=== PATIENT | male | born 1960 | race Caucasian/White ===

== ENCOUNTER → 2016-03-25 | Outpatient (CLI) | payer BC ==
--- NOTE | 2016-03-25 15:58 | US ---
EXAMINATION TYPE: US scrotum with doppler DATE OF EXAM: 03/25/2016 1:57 PM COMPARISON: NONE CLINICAL HISTORY: 55-year-old male N50.89 Disorder of male genital. Left with testicle swelling, no p ain, no injury TECHNIQUE: Multiple sonographic images of the scrotum were obtained. Color Doppler and spectral wavef orm analysis of the testicular arteries and veins. FINDINGS: TESTICLES: Right Testicle: 4.2 x 2.4 x 3.5 cm homogeneous echotexture without hyperemia. Satisfactory arterial and venous flow. Left Testicle: 4.3 x 4.1 x 3.7 cm with marked heterogeneous echotexture and a more focal area of hyp oechogenicity measuring 2.7 x 2.4 x 1.3 cm. There is satisfactory arterial and venous flow seen. EPIDIDYMIS HEAD: Right Epididymis: 1.2 x 0.9x 0.6 cm Left Epididymis: 1.6 x 1.3 x1.3 cm with a 1.2 cm epididymal head cyst. There is a moderate to large left and a small sized right hydrocele. No varicocele seen. IMPRESSION: 1. Moderate to large left-sided hydrocele with a markedly heterogeneous left testicle. Some type of i nfiltrative process such as sarcoid or lymphoma could be considered in the differential. An underlyin g mass is difficult to exclude given a more focal hypoechoic area measuring 2.7 cm within the left te sticle. 2. Small right-sided hydrocele. 3. No sonographic evidence for testicular torsion on either side.
== END | disposition home or self-care (01) ==
LOC: RADUSWWP 12:59
PROVIDERS: ATTEND Internal Medicine
DX: N43.3 Hydrocele, unspecified (principal)
CPT/HCPCS: 76870; 93975

== ENCOUNTER → 2016-03-30 | Outpatient (CLI) | payer BC ==
[2016-03-30 07:57] LABS: CH 31.3; HCT 43.4 % (39.0-53.0); HDW 2.78; HGB 14.3 gm/dL (13.0-17.5); MCH 30.3 pg (25.0-35.0); MCHC 32.8 g/dL (31.0-37.0); MCV 92.4 fL (80.0-100.0); Mean Platelet Volume 6.9; RDW 13.4 % (11.5-15.5); WBC 6.1 k/uL (3.8-10.6)
[2016-03-30 09:08] LABS: Hemoglobin A1C 11.5 % (4.2-6.1)
[2016-03-30 11:43] LABS: ALT 47 U/L (21-72); AST 27 U/L (17-59); Alkaline Phosphatase 62 U/L (38-126); Anion Gap 12 mmol/L; Blood Urea Nitrogen 12 mg/dL (9-20); Calcium 9.5 mg/dL (8.4-10.2); Carbon Dioxide 27 mmol/L (22-30); Chloride 98 mmol/L (98-107); Cholesterol 142 mg/dL (<200); Glucose 384 mg/dL (74-99); HDL Cholesterol 37 mg/dL (40-60); Non-African American GFR(MDRD) >60 (>60 ml/min/1.73 sqM); Potassium 5.1 mmol/L (3.5-5.1); Sodium 137 mmol/L (137-145); Total Bilirubin 1.5 mg/dL (0.2-1.3); Total Protein 7.3 g/dL (6.3-8.2); Triglycerides 212 mg/dL (<150)
== END | disposition home or self-care (01) ==
LOC: LABWHC1 07:04
PROVIDERS: ATTEND Internal Medicine
DX: E11.42 Type 2 diabetes mellitus with diabetic polyneuropathy (principal); E11.319 Type 2 diabetes mellitus with unspecified diabetic retinopathy without macular edema; Z12.5 Encounter for screening for malignant neoplasm of prostate
CPT/HCPCS: 80061; 80053; 83036; 85027; 36415; G0103

== ENCOUNTER → 2016-03-31 | Outpatient (CLI) | payer BC ==
[2016-03-31 07:52] LABS: Appearance,Urine Clear (Clear); Bilirubin,Urine Negative (Negative); Glucose,Urine (UA) 4+ (Negative); Ketones,Urine Trace (Negative); Leukocyte Esterase,Urine Negative (Negative); Nitrite,Urine Negative (Negative); PH, Urine 5.5 (5.0-8.0); Protein,Urine Negative (Negative); Specific Gravity,Urine 1.027 (1.001-1.035); UA Billing (MACRO vs. MICRO) CHEM; Urobilinogen,Urine <2.0 mg/dL (<2.0)
== END | disposition home or self-care (01) ==
LOC: LABWHC1 07:24
PROVIDERS: ATTEND Internal Medicine
DX: E11.42 Type 2 diabetes mellitus with diabetic polyneuropathy (principal); E11.319 Type 2 diabetes mellitus with unspecified diabetic retinopathy without macular edema; Z12.5 Encounter for screening for malignant neoplasm of prostate
CPT/HCPCS: 81003; 82043

== ENCOUNTER 2016-05-05 07:16 | Day surgery (SDC) | payer BC ==
[2016-04-30 12:26] VITALS: BMI 35.7
--- NOTE | 2016-05-03 08:28 | HP ---
DATE OF ADMISSION: CHIEF COMPLAINT: Testicular cancer. HISTORY OF PRESENT ILLNESS: Patient is a 55-year-old male who was recently diagnosed with testicular cancer in January this last year. CAT scan performed in early April showed a 2.3 cm. Periaortic lymph node. He is being started on chemotherapy at this time. PAST MEDICAL HISTORY: Diabetes, peripheral neuropathy. PAST SURGICAL HISTORY: Marielle, orchiectomy, retinal detachment. MEDICATIONS: 1. Humalog. 2. Levemir. 3. Losartan. 4. Metformin. 5. Simvastatin. ALLERGIES: PENICILLIN. PHYSICAL EXAM: Deferred until the time of the procedure. IMPRESSION: A 55-year-old male being scheduled for Port-A-Cath insertion on 05/05. The risks of bleeding, infection, catheter malfunction, DVT, pneumothorax and anesthesia-related complications will be discussed with the patient preoperatively.
[~2016-05-05 07:16] MED LIST: CLINDAMYCIN 900 MG in DEXTROSE 5% IN WATER 50 ML IVPB ONE; HEPARIN SODIUM,PORCINE 5,000 UNIT/ML 1 ML VIAL SQ ONE; HYDROmorphone 1 MG/ML 1 ML SYRINGE IVP PRN; LACTATED RINGERS 1,000 ML IV SCH; LIDOCAINE 1% 20 ML VIAL (10MG/ML) FOR IV START INTRADERMA PRN; ONDANSETRON 4 MG/2 ML VIAL IVP ONE
[2016-05-05 07:49] VITALS: RESP 16; TEMP 98.3
[2016-05-05 08:16] LABS: Glucose,Whole Blood 286 mg/dL (75-99)
[2016-05-05] MEDS ORDERED: INSULIN LISPRO (humaLOG) 300 UNIT/3 ML VIAL SQ ONE ×2 (08:26→10:38)
--- NOTE | 2016-05-05 08:35 | P.HPADDEND ---
H&P Addendum H&P Addendum Date: 05/05/16 Physical exam: General: Well-developed, well-nourished HEENT: Normocephalic, sclerae nonicteric Abdomen: Nontender, nondistended, left groin incision with scant drainage Extremities: No edema Neuro: Alert and oriented
[2016-05-05] MEDS ORDERED: MIDAZOLAM 2 MG/2 ML VIAL ONE (08:56)
[2016-05-05] MEDS ORDERED: KETAMINE 10 MG/ML 20 ML VIAL ONE (08:56)
[2016-05-05] MEDS ORDERED: PROPOFOL 10 MG/ML 20 ML VIAL IV ONE (08:56)
[2016-05-05] MEDS ORDERED: fentaNYL (PF) 50 MCG/ML 2 ML AMP ONE (08:56)
[2016-05-05] MEDS ORDERED: LIDOCAINE 1% (PF) 10MG/ML VIAL SQ ONE ×2 (09:18)
--- NOTE | 2016-05-05 09:53 | FL ---
EXAMINATION TYPE: FL guided central line placemt HISTORY: Fluoroscopy time Impression: 1. Fluoroscopy support provided to the referring physician. Approximately 8 seconds provided.
[2016-05-05] MEDS ORDERED: NALOXONE 0.4 MG/ML 1 ML VIAL IV PRN (09:54)
--- NOTE | 2016-05-05 10:00 | P.PCN ---
Date of Procedure: 05/05/16 Procedure(s) Performed: PREOPERATIVE DIAGNOSIS: Testicular cancer POSTOPERATIVE DIAGNOSIS: Same PROCEDURE: Port-A-Cath placement SURGEON: Kami EBL: Minimal ANESTHESIA: Sedation COMPLICATIONS: None OPERATIVE PROCEDURE: Patient was brought and placed on the operative table in the supine position. The patient was sedated per anesthesia that time. The chest and neck were prepped and draped in usual sterile fashion. The ultrasound probe was used to identify the location of the right internal jugular vein. The skin was localized with lidocaine. The Seldinger needle was advanced into the IJ under ultrasound guidance. The wire was advanced through the needle under fluoroscopic guidance into the superior vena cava. A port pocket was created in the right infraclavicular location. The catheter was tunneled from the wire entrance site to the port pocket. The port was then connected to the catheter. The dilator introducer was threaded over the guidewire. The guidewire and dilator were then removed. The catheter was advanced through the introducer and introducer was then removed. The tip was seen to be in the right atrial junction. Port was flushed with both saline and a Hep-Lock solution. There was good flow both in and out of the port. The port was sutured in underlying tissues using 3-0 silk sutures. The subcutaneous tissues were reapproximated using 3-0 Vicryl sutures and the skin at both locations using 4-0 Monocryl sutures. Steri-Strips and sterile dressings then applied. DISPOSITION: Stable to recovery room
[2016-05-05] MEDS ORDERED: diphenhydrAMINE 50 MG/ML 1 ML VIAL IVP ONE ×2 (10:15)
[2016-05-05 10:24] VITALS: BP 118/59; PULSE 82
--- NOTE | 2016-05-05 10:25 | XR ---
EXAMINATION TYPE: XR chest 1V portable DATE OF EXAM: 05/05/2016 10:20 AM COMPARISON: 02/05/2013 HISTORY: Port-A-Cath insertion TECHNIQUE: Single frontal view of the chest is obtained. FINDINGS: There is no focal air space opacity, pleural effusion, or pneumothorax seen. The cardiac silhouette size is within normal limits. The osseous structures are intact. Heart size is prominent pleural-based thickening. Mediport catheter seen with the tip overlying the SVC. IMPRESSION: 1. Mediport appears in good position with no sizable pneumothorax..
[2016-05-05 10:35] LABS: Glucose,Whole Blood 299 mg/dL (75-99)
== END 2016-05-05 11:09 | disposition home or self-care (01) ==
LOC: OR 07:16
PROVIDERS: ATTEND Surgery
DX: Z45.2 Encounter for adjustment and management of vascular access device (principal); C62.12 Malignant neoplasm of descended left testis; I10 Essential (primary) hypertension; E78.5 Hyperlipidemia, unspecified; E11.9 Type 2 diabetes mellitus without complications; G62.9 Polyneuropathy, unspecified; Z88.0 Allergy status to penicillin; Z79.84 Long term (current) use of oral hypoglycemic drugs; Z79.4 Long term (current) use of insulin; Z79.899 Other long term (current) drug therapy
CPT/HCPCS: 36561; 71010; 77001; C1788; J2250; J1200; J1644; J2405; J3010; J1642; J2001; J2704

== ENCOUNTER 2016-07-23 11:00 | Inpatient (IN) | payer BC ==
[2016-07-23] MEDS ORDERED: SODIUM CHLORIDE 0.9% 2,000 ML IV ONE ×2 (11:19→18:21)
[2016-07-23] MEDS ORDERED: ONDANSETRON 4 MG/2 ML VIAL IVP STA (11:19)
[2016-07-23] MEDS ORDERED: LEVOFLOXACIN 750MG-D5W PMX 750 MG in DEXTROSE/WATER 1 150ML.BAG IVPB STA (11:20)
[2016-07-23] MEDS ORDERED: ACETAMINOPHEN IV (For NPO) 1,000 MG in EMPTY BAG 1 BAG IVPB STA (11:21)
[2016-07-23] MEDS ORDERED: RX INFO: IV CONTRAST WAS GIVEN 1 EACH MISC MISCELLANE PRN (11:24)
--- NOTE | 2016-07-23 11:24 | ED ---
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 Patient states he's been taking chemo and he had his last chemo treatment on Tuesday. Patient states yesterday started having some belly pain and some nausea. Patient states today the belly pain is worse any spiking a fever. Patient states also had low blood pressure home in the 80s systolic. Patient also notes that his heart rate is been fast and is also a little bit lightheaded. Patient denies any chest pain or shortness of breath per patient denies any headache patient denies numbness weakness. Patient denies any vomiting - Related Data Home Medications Medication Instructions Recorded Confirmed Insulin Detemir [Levemir Flextouch] 67 units SQ HS 04/30/16 07/23/16 Insulin Lispro Protamin/Lispro See Protocol SQ AC-BID 04/30/16 07/23/16 [humaLOG Mix 50-50 Kwikpen] Simvastatin [Zocor] 40 mg PO Q48H 04/30/16 07/23/16 metFORMIN HCL [Glucophage] 1,000 mg PO AC-BID 04/30/16 07/23/16 Calcium Carb-Vit D 500Mg-200Un 2 tab PO BID 07/16/16 07/23/16 [Oscal 500+D] Hydrocortisone [Cortef] 20 mg PO DAILY 07/23/16 07/23/16 Losartan Potassium [Cozaar] 100 mg PO DIRECTED 07/23/16 07/23/16 Prochlorperazine [Compazine] 10 mg PO Q6H PRN 07/23/16 07/23/16 Allergies Allergy/AdvReac Type Severity Reaction Status Date / Time Penicillins Allergy Unknown Rash/Hives Verified 07/23/16 11:21 Review of Systems ROS Statement: Those systems with pertinent positive or pertinent negative responses have been documented in the HPI. ROS Other: All systems not noted in ROS Statement are negative. Past Medical History Past Medical History: Cancer, Diabetes Mellitus Additional Past Medical History / Comment(s): NEUROPATHY (FEET), DIABETIC SINCE AGE 39., HX OF SQUAMOUS CELL SKIN CANCER., TESTICULAR CANCER (DX FEBRUARY 2016), LEFT TESTICLE REMOVED 3 WEEKS AGO- STATES STILL SOME DRAINAGE FROM SURGICAL SITE. History of Any Multi-Drug Resistant Organisms: None Reported Past Surgical History: Cholecystectomy Additional Past Surgical History / Comment(s): DARRIAN DETACHED RETINA SURGERY., COLONOSCOPY, LEFT TESTICLE REMOVED (3 WEEKS AGO) Past Anesthesia/Blood Transfusion Reactions: No Reported Reaction Past Psychological History: No Psychological Hx Reported Smoking Status: Never smoker Past Alcohol Use History: None Reported Past Drug Use History: Unable to Obtain - Past Family History Sister(s) Family Medical History: Cancer General Exam - General Exam Comments Initial Comments: GENERAL: Patient is well-developed and well-nourished. Patient is nontoxic and well- hydrated and is in moderatedistress. ENT: Neck is soft and supple. No significant lymphadenopathy is noted. Oropharynx is clear. Moist mucous membranes. Neck has full range of motion without eliciting any pain. EYES: The sclera were anicteric and conjunctiva were pink and moist. Extraocular movements were intact and pupils were equal round and reactive to light. Eyelids were unremarkable. PULMONARY: Unlabored respirations. Good breath sounds bilaterally. No audible rales rhonchi or wheezing was noted. CARDIOVASCULAR: There is a regular rate and rhythm without any murmurs gallops or rubs. ABDOMEN: patient's abdomen is diffusely tender and has rebound. SKIN: Skin is clear with no lesions or rashes and otherwise unremarkable. NEUROLOGIC: Patient is alert and oriented x3. Cranial nerves II through XII are grossly intact. Motor and sensory are also intact. Normal speech, volume and content. Symmetrical smile. MUSCULOSKELETAL: Normal extremities with adequate strength and full range of motion. LYMPHATICS: No significant lymphadenopathy is noted PSYCHIATRIC: Normal psychiatric evaluation. Normal interpersonal interactions appears functionally intact in deals appropriately with others. No signs of depression. No signs of anxiety. Limitations: no limitations Course Vital Signs 07/23/16 07/23/16 07/23/16 11:02 13:00 13:48 Temperature 104.3 F H 100.4 F H 99.0 F Pulse Rate 154 H 148 H 144 H Pulse Rate [ 140 H Apical] Respiratory 18 30 H 18 Rate Blood Pressure 146/70 139/74 117/58 O2 Sat by Pulse 92 L 96 90 L Oximetry Procedures - Intubation Time Out Performed: Yes Sedative: Versed Paralytic: Succinylcholine Laryngoscope: Chambers Size: 3 ET Tube Uncuffed: No Tube Secured Location: teeth Tube Placement Confirmation: visualized tube passing through cords, equal breath sounds bilaterally, no breath sounds over epigastrium, confirmation by capnometry Patient Tolerated Procedure: well Intubation Complications: none Medical Decision Making - Medical Decision Making EKG shows sinus tachycardia at 152 bpm ID interval is 112 QRS is 66 QT interval is 274 QTC is 435 per patient's EKG shows no ST segment elevation or depression or T wave abnormalities are noted. computed tomography scan showed extensive mural thickening involving the terminal ileum and cecum with surrounding inflammatory changes it could be infectious versus inflammatory versus ischemic. Spoke with Dr. French Braswell wanted Dr. Triana cell and more on consult as well as Dr. Paige I also started the patient on Fortaz at this point. I spoke with Dr. Boyce and informed her of the patient's CAT scan as well as the physical exam. I made her aware that I thought it would be prudent to see the patient soon as possible. - Lab Data Result diagrams: 07/23/16 11:50 07/23/16 11:50 Lab Results 07/23/16 07/23/16 07/23/16 Range/Units 11:50 11:50 11:50 WBC 0.2 L* (3.8-10.6) k/uL RBC 3.01 L (4.30-5.90) m/uL Hgb 8.7 L (13.0-17.5) gm/dL Hct 25.7 L (39.0-53.0) % MCV 85.6 (80.0-100.0) fL MCH 29.1 (25.0-35.0) pg MCHC 33.9 (31.0-37.0) g/dL RDW 14.6 (11.5-15.5) % Plt Count 10 L* (150-450) k/uL Differential Comment Poikilocytosis (manual Present Anisocytosis (manual) Present PT (9.0-12.0) sec INR (<1.1) APTT (22.0-30.0) sec D-Dimer (<0.60) mg/L FEU Sodium 137 (137-145) mmol/L Potassium 3.5 (3.5-5.1) mmol/L Chloride 94 L (98-107) mmol/L Carbon Dioxide 26 (22-30) mmol/L Anion Gap 17 mmol/L BUN 64 H (9-20) mg/dL Creatinine 2.30 H (0.66-1.25) mg/dL Est GFR (MDRD) Af Amer 36 (>60 ml/min/1.73 sqM) Est GFR (MDRD) Non-Af 29 (>60 ml/min/1.73 sqM) Glucose 446 H (74-99) mg/dL Plasma Lactic Acid Mark (0.7-2.0) mmol/L Calcium 6.3 L* (8.4-10.2) mg/dL Total Bilirubin 1.8 H (0.2-1.3) mg/dL AST 33 (17-59) U/L ALT 49 (21-72) U/L Alkaline Phosphatase 53 (38-126) U/L Total Creatine Kinase 36 L (55-170) U/L CK-MB (CK-2) <0.2 (0.0-2.4) ng/mL CK-MB (CK-2) Rel Index Troponin I 0.013 (0.000-0.034) ng/mL Total Protein 5.9 L (6.3-8.2) g/dL Albumin 3.4 L (3.5-5.0) g/dL Urine Color Urine Appearance (Clear) Urine pH (5.0-8.0) Ur Specific [place] (1.001-1.035) Urine Protein (Negative) Urine Glucose (UA) (Negative) Urine Ketones (Negative) Urine Blood (Negative) Urine Nitrite (Negative) Urine Bilirubin (Negative) Urine Urobilinogen (<2.0) mg/dL Ur Leukocyte Esterase (Negative) Urine RBC (0-5) /hpf Urine WBC (0-5) /hpf Influenza Type A RNA (Not Detectd) Influenza Type B (PCR) (Not Detectd) 07/23/16 07/23/16 07/23/16 Range/Units 11:50 11:50 11:50 WBC (3.8-10.6) k/uL RBC (4.30-5.90) m/uL Hgb (13.0-17.5) gm/dL Hct (39.0-53.0) % MCV (80.0-100.0) fL MCH (25.0-35.0) pg MCHC (31.0-37.0) g/dL RDW (11.5-15.5) % Plt Count (150-450) k/uL Differential Comment Poikilocytosis (manual Anisocytosis (manual) PT 13.3 H (9.0-12.0) sec INR 1.4 (<1.1) APTT 21.0 L (22.0-30.0) sec D-Dimer 4.48 H (<0.60) mg/L FEU Sodium (137-145) mmol/L Potassium (3.5-5.1) mmol/L Chloride (98-107) mmol/L Carbon Dioxide (22-30) mmol/L Anion Gap mmol/L BUN (9-20) mg/dL Creatinine (0.66-1.25) mg/dL Est GFR (MDRD) Af Amer (>60 ml/min/1.73 sqM) Est GFR (MDRD) Non-Af (>60 ml/min/1.73 sqM) Glucose (74-99) mg/dL Plasma Lactic Acid Mark 5.5 H* (0.7-2.0) mmol/L Calcium (8.4-10.2) mg/dL Total Bilirubin (0.2-1.3) mg/dL AST (17-59) U/L ALT (21-72) U/L Alkaline Phosphatase (38-126) U/L Total Creatine Kinase (55-170) U/L CK-MB (CK-2) (0.0-2.4) ng/mL CK-MB (CK-2) Rel Index Troponin I (0.000-0.034) ng/mL Total Protein (6.3-8.2) g/dL Albumin (3.5-5.0) g/dL Urine Color Urine Appearance (Clear) Urine pH (5.0-8.0) Ur Specific [place] (1.001-1.035) Urine Protein (Negative) Urine Glucose (UA) (Negative) Urine Ketones (Negative) Urine Blood (Negative) Urine Nitrite (Negative) Urine Bilirubin (Negative) Urine Urobilinogen (<2.0) mg/dL Ur Leukocyte Esterase (Negative) Urine RBC (0-5) /hpf Urine WBC (0-5) /hpf Influenza Type A RNA (Not Detectd) Influenza Type B (PCR) (Not Detectd) 07/23/16 07/23/16 Range/Units 13:23 13:55 WBC (3.8-10.6) k/uL RBC (4.30-5.90) m/uL Hgb (13.0-17.5) gm/dL Hct (39.0-53.0) % MCV (80.0-100.0) fL MCH (25.0-35.0) pg MCHC (31.0-37.0) g/dL RDW (11.5-15.5) % Plt Count (150-450) k/uL Differential Comment Poikilocytosis (manual Anisocytosis (manual) PT (9.0-12.0) sec INR (<1.1) APTT (22.0-30.0) sec D-Dimer (<0.60) mg/L FEU Sodium (137-145) mmol/L Potassium (3.5-5.1) mmol/L Chloride (98-107) mmol/L Carbon Dioxide (22-30) mmol/L Anion Gap mmol/L BUN (9-20) mg/dL Creatinine (0.66-1.25) mg/dL Est GFR (MDRD) Af Amer (>60 ml/min/1.73 sqM) Est GFR (MDRD) Non-Af (>60 ml/min/1.73 sqM) Glucose (74-99) mg/dL Plasma Lactic Acid Mark (0.7-2.0) mmol/L Calcium (8.4-10.2) mg/dL Total Bilirubin (0.2-1.3) mg/dL AST (17-59) U/L ALT (21-72) U/L Alkaline Phosphatase (38-126) U/L Total Creatine Kinase (55-170) U/L CK-MB (CK-2) (0.0-2.4) ng/mL CK-MB (CK-2) Rel Index Troponin I (0.000-0.034) ng/mL Total Protein (6.3-8.2) g/dL Albumin (3.5-5.0) g/dL Urine Color Yellow Urine Appearance Clear (Clear) Urine pH 5.0 (5.0-8.0) Ur Specific [place] 1.007 (1.001-1.035) Urine Protein 1+ H (Negative) Urine Glucose (UA) 3+ H (Negative) Urine Ketones Negative (Negative) Urine Blood Negative (Negative) Urine Nitrite Negative (Negative) Urine Bilirubin Negative (Negative) Urine Urobilinogen <2.0 (<2.0) mg/dL Ur Leukocyte Esterase Negative (Negative) Urine RBC 1 (0-5) /hpf Urine WBC 1 (0-5) /hpf Influenza Type A RNA Not Detected (Not Detectd) Influenza Type B (PCR) Not Detected (Not Detectd) Critical Care Time Critical Care Time: Yes Total Critical Care Time: 40 Disposition Clinical Impression: Colitis, Sepsis, Hypocalcemia, Acute renal failure, Hyperglycemia, Leukopenia, Respiratory failure Disposition: ADMITTED IP TO THIS [facility] Time of Disposition: 14:35
[2016-07-23 12:06] LABS: Aty Lym Flag Moderate; CH 29.9; CHCM 34.9; HCT 25.7 % (39.0-53.0); HDW 3.37; HGB 8.7 gm/dL (13.0-17.5); MCH 29.1 pg (25.0-35.0); MCHC 33.9 g/dL (31.0-37.0); MCV 85.6 fL (80.0-100.0); Mean Platelet Volume 8.5; RBC 3.01 m/uL (4.30-5.90); RDW 14.6 % (11.5-15.5); WBC (Perox) 0.21
[2016-07-23 12:14] LABS: WBC 0.2 k/uL (3.8-10.6)
[2016-07-23 12:18] LABS: Potassium 3.5 mmol/L (3.5-5.1); Total Bilirubin 1.8 mg/dL (0.2-1.3); Total Protein 5.9 g/dL (6.3-8.2)
[2016-07-23 12:25] LABS: INR 1.4 (<1.1); Prothrombin Time 13.3 sec (9.0-12.0)
[2016-07-23 12:30] LABS: Creatine Kinase 36 U/L (55-170)
[2016-07-23] MEDS ORDERED: IBUPROFEN IV 600 MG in SODIUM CHLORIDE 0.9% 250 ML IV ONE (12:30)
[2016-07-23 12:34] LABS: Calcium 6.3 mg/dL (8.4-10.2)
[2016-07-23] MEDS ORDERED: HYDROmorphone 1 MG/ML 1 ML SYRINGE IVP STA (12:39)
[2016-07-23 12:44] LABS: Creatine Kinase MB <0.2 ng/mL (0.0-2.4); Troponin I 0.013 ng/mL (0.000-0.034)
--- NOTE | 2016-07-23 12:57 | XR ---
EXAMINATION TYPE: XR chest 2V DATE OF EXAM: 07/23/2016 COMPARISON: Prior chest x-ray 05/05/2016 HISTORY: Fever, tachycardia, hypotension TECHNIQUE: Frontal and lateral views of the chest are obtained. FINDINGS: Right-sided Port-A-Cath is in place, distal tip overlying the cavoatrial junction level. T here are overlying cardiac leads, tubing from oxygen. Cardiomediastinal silhouette, pulmonary vascula rity and johan not significantly changed. There is some blunting the right costophrenic angle, patchy basilar density is noted. No evident pneumothorax. No sizable pleural effusion evident. Postop change noted in the upper abdomen. IMPRESSION: Expiratory rotated exam, probable basilar atelectasis. Follow-up as indicated.
[2016-07-23 13:06] LABS: Add Differential Manual Differential
--- NOTE | 2016-07-23 13:11 | CT ---
EXAMINATION TYPE: CT abdomen pelvis wo con DATE OF EXAM: 07/23/2016 COMPARISON: NONE HISTORY: Patient complains of right sided abdominal pain and weakness. CT DLP: [address] of the abdomen and pelvis was performed. The lack of contrast limits evaluation of the solid and hollow viscera. FINDINGS: LUNG BASES: No evidence for nodule. No evidence for infiltrate. LIVER/GB: Cholecystectomy clips are in place. No space-occupying hepatic lesion. PANCREAS: No pancreatic mass identified. No inflammatory process seen. SPLEEN: No evidence for splenomegaly. No intrasplenic lesions seen. ADRENALS: No adrenal nodules identified. No evidence for thickening. KIDNEYS: No evidence for renal mass. No nephrolithiasis. No hydronephrosis. BOWEL: There is extensive mural thickening involving the terminal ileum and cecum with surrounding in flammatory change. What appears to reflect the appendix has a normal appearance. There is no evidence for perforation or abscess. Differential diagnostic possibilities include infectious and inflammator y ileitis and colitis. Ischemic causes also considered. Lymph nodes: No evidence for adenopathy greater than 1 cm. Abdominal aorta: Atheromatous changes seen. No evidence for aneurysm. Genital organs: No significant abnormality. Other: No significant abnormality. IMPRESSION: 1.extensive mural thickening involving the terminal ileum and cecum with surrounding inflammatory sunny nge. Differential diagnostic possibilities include infectious and inflammatory ileitis and colitis. I schemic causes also considered.
[2016-07-23] MEDS ORDERED: SODIUM CHLORIDE 0.9% 1,000 ML IV ONE ×2 (13:17→17:16)
[2016-07-23 14:13] LABS: Appearance,Urine Clear (Clear); Bilirubin,Urine Negative (Negative); Glucose,Urine (UA) 3+ (Negative); Ketones,Urine Negative (Negative); Leukocyte Esterase,Urine Negative (Negative); Nitrite,Urine Negative (Negative); Particle Count 1851; Protein,Urine 1+ (Negative); RBC,Urine 1 /hpf (0-5); Specific Gravity,Urine 1.007 (1.001-1.035); UA Billing (MACRO vs. MICRO) MICRO; Urobilinogen,Urine <2.0 mg/dL (<2.0); WBC,Urine 1 /hpf (0-5)
[2016-07-23] MEDS ORDERED: NALOXONE 0.4 MG/ML 1 ML VIAL IV PRN (14:31)
[2016-07-23] MEDS ORDERED: ACETAMINOPHEN TAB 325 MG TAB PO PRN (14:31)
[2016-07-23] MEDS ORDERED: VANCOMYCIN 1,000 MG in SODIUM CHLORIDE 0.9% 250 ML IVPB STA (14:54)
[2016-07-23] MEDS ORDERED: IV VANCOMYCIN PER PHARMACY 1 EACH MISC MISCELLANE PRN (14:55)
[2016-07-23] MEDS: SODIUM CHLORIDE 0.9% 2,000 ML IV ONE ×2 (15:20→18:23)
[2016-07-23] MEDS: INSULIN REGULAR 100 UNIT in SODIUM CHLORIDE 0.9% 100 ML IV ONE ×2 (15:29→22:48)
[2016-07-23] MEDS ORDERED: LORazepam 2 MG/ML SYRINGE IM STA (15:32)
[2016-07-23] MEDS ORDERED: SUCCINYLCHOLINE CHLORIDE VIAL 200 MG/10 ML VIAL IV STA (15:32)
[2016-07-23] MEDS ORDERED: MIDAZOLAM (PF) 1 MG/ML 5 ML VIAL IV STA (15:32)
[2016-07-23 15:37] LABS: Glucose,Whole Blood 506 mg/dL (75-99)
--- NOTE | 2016-07-23 15:37 | XR ---
EXAMINATION TYPE: XR chest 1V DATE OF EXAM: 07/23/2016 COMPARISON: Chest xray 07/23/2016 at earlier time HISTORY: Shortness of breath TECHNIQUE: Single frontal view of the chest is obtained. FINDINGS: Lung volumes are low. No significant change is evident. IMPRESSION: Rotated exam. Heart is enlarged. There is likely basilar atelectasis. Follow-up as indic ated.
--- NOTE | 2016-07-23 15:47 | P.GSCN ---
History of Present Illness Consult date: 07/23/16 Reason for Consult: Abdominal pain, sepsis History of present illness: The patient's a 55-year-old man undergoing chemotherapy for testicular cancer. His last chemotherapy treatment was Tuesday. He started having some abdominal pain which progressively got worse. He is having diarrhea. Today started running a high fever so he came into the emergency department. He says he has had some abdominal pain and diarrhea with previous chemotherapy. No blood in the stools or dark tarry stools. Review of Systems All systems: negative Past Medical History Past Medical History: Cancer, Diabetes Mellitus Additional Past Medical History / Comment(s): NEUROPATHY (FEET), DIABETIC SINCE AGE 39., HX OF SQUAMOUS CELL SKIN CANCER., TESTICULAR CANCER (DX FEBRUARY 2016), LEFT TESTICLE REMOVED 3 WEEKS AGO- STATES STILL SOME DRAINAGE FROM SURGICAL SITE. History of Any Multi-Drug Resistant Organisms: None Reported Past Surgical History: Cholecystectomy Additional Past Surgical History / Comment(s): DARRIAN DETACHED RETINA SURGERY., COLONOSCOPY, LEFT TESTICLE REMOVED (3 WEEKS AGO) Past Anesthesia/Blood Transfusion Reactions: No Reported Reaction Past Psychological History: No Psychological Hx Reported Smoking Status: Never smoker Past Alcohol Use History: None Reported Past Drug Use History: Unable to Obtain - Past Family History Sister(s) Family Medical History: Cancer Medications and Allergies Home Medications Medication Instructions Recorded Confirmed Type Insulin Detemir [Levemir Flextouch] 67 units SQ HS 04/30/16 07/23/16 History Insulin Lispro Protamin/Lispro See Protocol SQ AC-BID 04/30/16 07/23/16 History [humaLOG Mix 50-50 Kwikpen] Simvastatin [Zocor] 40 mg PO Q48H 04/30/16 07/23/16 History metFORMIN HCL [Glucophage] 1,000 mg PO AC-BID 04/30/16 07/23/16 History Calcium Carb-Vit D 500Mg-200Un 2 tab PO BID 07/16/16 07/23/16 History [Oscal 500+D] Hydrocortisone [Cortef] 20 mg PO DAILY 07/23/16 07/23/16 History Losartan Potassium [Cozaar] 100 mg PO DIRECTED 07/23/16 07/23/16 History Prochlorperazine [Compazine] 10 mg PO Q6H PRN 07/23/16 07/23/16 History Allergies Allergy/AdvReac Type Severity Reaction Status Date / Time Penicillins Allergy Unknown Rash/Hives Verified 07/23/16 11:21 Surgical - Exam Osteopathic Statement: *. No significant issues noted on an osteopathic structural exam other than those noted in the History and Physical/Consult. Vital Signs Temp Pulse Resp BP Pulse Ox 104.3 F H 154 H 18 146/70 92 L 07/23/16 11:02 07/23/16 11:02 07/23/16 11:02 07/23/16 11:02 07/23/16 11:02 - General Appears ill, face is flushed, appears uncomfortable. - Eyes normal ocular movement - ENT no hearing loss - Neck trachea midline, no lymphadectomy - Respiratory normal respiratory effort - Cardiovascular Rhythm: other (Tachycardic) Abnormal Heart Sounds: systolic murmur (Pain 1 to 2/6 systolic ejection murmur) - Abdomen He has some diffuse tenderness. No significant tenderness to percussion. No significant guarding. Abdomen: tender, bowel sounds (Hypoactive), no guarding, no rebound, distended ( Mildly distended) - Psychiatric oriented to time, oriented to person, oriented to place, speech is normal, memory intact Results - Labs 07/23/16 11:50 07/23/16 11:50 Abnormal Lab Results - Last 24 Hours (Table) 07/23/16 07/23/16 07/23/16 Range/Units 11:50 11:50 11:50 WBC 0.2 L* (3.8-10.6) k/uL RBC 3.01 L (4.30-5.90) m/uL Hgb 8.7 L (13.0-17.5) gm/dL Hct 25.7 L (39.0-53.0) % Plt Count 10 L* (150-450) k/uL PT (9.0-12.0) sec APTT (22.0-30.0) sec Chloride 94 L (98-107) mmol/L BUN 64 H (9-20) mg/dL Creatinine 2.30 H (0.66-1.25) mg/dL Glucose 446 H (74-99) mg/dL POC Glucose (mg/dL) (75-99) mg/dL Plasma Lactic Acid Mark (0.7-2.0) mmol/L Calcium 6.3 L* (8.4-10.2) mg/dL Total Bilirubin 1.8 H (0.2-1.3) mg/dL Total Creatine Kinase 36 L (55-170) U/L Total Protein 5.9 L (6.3-8.2) g/dL Albumin 3.4 L (3.5-5.0) g/dL Urine Protein (Negative) Urine Glucose (UA) (Negative) 07/23/16 07/23/16 07/23/16 Range/Units 11:50 11:50 13:55 WBC (3.8-10.6) k/uL RBC (4.30-5.90) m/uL Hgb (13.0-17.5) gm/dL Hct (39.0-53.0) % Plt Count (150-450) k/uL PT 13.3 H (9.0-12.0) sec APTT 21.0 L (22.0-30.0) sec Chloride (98-107) mmol/L BUN (9-20) mg/dL Creatinine (0.66-1.25) mg/dL Glucose (74-99) mg/dL POC Glucose (mg/dL) (75-99) mg/dL Plasma Lactic Acid Mark 5.5 H* (0.7-2.0) mmol/L Calcium (8.4-10.2) mg/dL Total Bilirubin (0.2-1.3) mg/dL Total Creatine Kinase (55-170) U/L Total Protein (6.3-8.2) g/dL Albumin (3.5-5.0) g/dL Urine Protein 1+ H (Negative) Urine Glucose (UA) 3+ H (Negative) 07/23/16 Range/Units 15:35 WBC (3.8-10.6) k/uL RBC (4.30-5.90) m/uL Hgb (13.0-17.5) gm/dL Hct (39.0-53.0) % Plt Count (150-450) k/uL PT (9.0-12.0) sec APTT (22.0-30.0) sec Chloride (98-107) mmol/L BUN (9-20) mg/dL Creatinine (0.66-1.25) mg/dL Glucose (74-99) mg/dL POC Glucose (mg/dL) 506 H (75-99) mg/dL Plasma Lactic Acid Mark (0.7-2.0) mmol/L Calcium (8.4-10.2) mg/dL Total Bilirubin (0.2-1.3) mg/dL Total Creatine Kinase (55-170) U/L Total Protein (6.3-8.2) g/dL Albumin (3.5-5.0) g/dL Urine Protein (Negative) Urine Glucose (UA) (Negative) Diabetes panel 07/23/16 Range/Units 11:50 Sodium 137 (137-145) mmol/L Potassium 3.5 (3.5-5.1) mmol/L Chloride 94 L (98-107) mmol/L Carbon Dioxide 26 (22-30) mmol/L BUN 64 H (9-20) mg/dL Creatinine 2.30 H (0.66-1.25) mg/dL Glucose 446 H (74-99) mg/dL Calcium 6.3 L* (8.4-10.2) mg/dL AST 33 (17-59) U/L ALT 49 (21-72) U/L Alkaline Phosphatase 53 (38-126) U/L Total Protein 5.9 L (6.3-8.2) g/dL Albumin 3.4 L (3.5-5.0) g/dL Calcium panel 07/23/16 Range/Units 11:50 Calcium 6.3 L* (8.4-10.2) mg/dL Albumin 3.4 L (3.5-5.0) g/dL Pituitary panel 07/23/16 Range/Units 11:50 Sodium 137 (137-145) mmol/L Potassium 3.5 (3.5-5.1) mmol/L Chloride 94 L (98-107) mmol/L Carbon Dioxide 26 (22-30) mmol/L BUN 64 H (9-20) mg/dL Creatinine 2.30 H (0.66-1.25) mg/dL Glucose 446 H (74-99) mg/dL Calcium 6.3 L* (8.4-10.2) mg/dL Adrenal panel 07/23/16 Range/Units 11:50 Sodium 137 (137-145) mmol/L Potassium 3.5 (3.5-5.1) mmol/L Chloride 94 L (98-107) mmol/L Carbon Dioxide 26 (22-30) mmol/L BUN 64 H (9-20) mg/dL Creatinine 2.30 H (0.66-1.25) mg/dL Glucose 446 H (74-99) mg/dL Calcium 6.3 L* (8.4-10.2) mg/dL Total Bilirubin 1.8 H (0.2-1.3) mg/dL AST 33 (17-59) U/L ALT 49 (21-72) U/L Alkaline Phosphatase 53 (38-126) U/L Total Protein 5.9 L (6.3-8.2) g/dL Albumin 3.4 L (3.5-5.0) g/dL - Imaging CT scan - pelvis: report reviewed, image reviewed Assessment and Plan (1) Neutropenic typhlitis Status: Acute (2) Abdominal pain Status: Acute (3) SIRS (systemic inflammatory response syndrome) Status: Acute (4) Testicular cancer Status: Acute (5) Sepsis Status: Acute Plan: IV antibiotics, hydrate, consult steel manager, likely will need some sort of pressor support. Serial exams. DVT and ulcer prophylaxis. Prognosis guarded
--- NOTE | 2016-07-23 15:57 | XR ---
EXAMINATION TYPE: XR chest 1V confirm line plcct DATE OF EXAM: 07/23/2016 HISTORY: CONFIRM ET TUBE PLACEMENT. REFERENCE: Previous study dated 07/23/2016. FINDINGS: The patient has been intubated. ET tube is in satisfactory position with its tip 5.7 cm abo ve the sergio. An NG tube is placed and its tip is just within the stomach. This could be advanced. There is mild bibasilar airspace disease likely representing atelectasis. Heart size upper limits of normal. I could not exclude small effusions. IMPRESSION: 1. SATISFACTORY ET TUBE PLACEMENT. 2. BIBASILAR AIRSPACE DISEASE. 3. SMALL, BILATERAL EFFUSIONS.
[2016-07-23] MEDS ORDERED: NOREPINEPHRIN 4 MG-0.9% NS PMX 4 MG/250 ML ML IV SCH (16:00)
[2016-07-23] MEDS ORDERED: HYDROCORTISONE SUCCINATE 100 MG/2 ML VIAL IV STA (16:05)
[2016-07-23] MEDS ORDERED: PROPOFOL 50 ML IV ONE (16:21)
[2016-07-23] MEDS ORDERED: CISATRACURIUM 2 MG/ML 5 ML VIAL IV ONE (16:21)
--- NOTE | 2016-07-23 16:44 | XR ---
EXAMINATION TYPE: XR abdomen 1V DATE OF EXAM: 07/23/2016 COMPARISON: NONE HISTORY: Pain TECHNIQUE: Single decubitus view of the abdomen is submitted. FINDINGS: No convincing evidence for pneumoperitoneum. Bowel gas pattern is unremarkable. IMPRESSION: 1. No evidence for pneumoperitoneum on this single view.
[2016-07-23 16:59] LABS: Glucose,Whole Blood 448 mg/dL (75-99)
--- NOTE | 2016-07-23 17:02 | XR ---
EXAMINATION TYPE: XR chest 1V confirm line plcut DATE OF EXAM: 07/23/2016 HISTORY: Shortness of breath. COMPARISON: February 23, 2016 TECHNIQUE: Single view of the chest is submitted. FINDINGS: Endotracheal tube is 3.5 cm from the sergio. NG tube is seen coursing into the stomach. Left IJ centr al venous line demonstrates its distal tip within the right atrium. Right-sided MediPort catheter dem onstrates its distal tip within the SVC. Patchy basilar infiltrates are seen. Lung volumes are diminished. Cardiomediastinal silhouette is stable. No evidence for pneumothorax. IMPRESSION: 1. Indwelling tubes and catheters as noted. 2. Patchy basilar infiltrates persist.
[2016-07-23 17:48] LABS: CH 29.2; CHCM 33.1; HCT 25.9 % (39.0-53.0); HDW 3.42; HGB 8.5 gm/dL (13.0-17.5); MCH 28.9 pg (25.0-35.0); MCHC 32.7 g/dL (31.0-37.0); MCV 88.4 fL (80.0-100.0); Mean Platelet Volume 7.3; Poikilocytosis Slight; RBC 2.94 m/uL (4.30-5.90); RDW 14.7 % (11.5-15.5); WBC (Perox) 0.27
[2016-07-23 17:54] LABS: WBC 0.3 k/uL (3.8-10.6)
[2016-07-23 17:55] LABS: Glucose,Whole Blood 404 mg/dL (75-99)
[2016-07-23] MEDS ORDERED: ACETAMINOPHEN IV (For NPO) 1,000 MG in EMPTY BAG 1 BAG IVPB ONE (18:00)
[2016-07-23 18:09] LABS: ABG Base Excess -12.3 mmol/L; ABG HCO3 12 mmol/L (21-25); ABG PCO2 22 mmHg (35-45); ABG PH 7.36 (7.35-7.45); ABG PO2 106 mmHg (83-108); ABG TCO2 13 mmol/L (19-24)
[2016-07-23 18:11] LABS: ABG Base Excess -12.3 mmol/L; ABG HCO3 13 mmol/L (21-25); ABG PCO2 27 mmHg (35-45); ABG PO2 81 mmHg (83-108); ABG TCO2 13 mmol/L (19-24)
[2016-07-23 18:11] LABS: Phosphorous 4.9 mg/dL (2.5-4.5); Potassium 3.3 mmol/L (3.5-5.1)
[2016-07-23] MEDS ORDERED: Magnesium Replacement Protocol 1 EACH MISC MISCELLANE PRN (18:15)
[2016-07-23 18:16] LABS: Calcium 5.2 mg/dL (8.4-10.2); Magnesium 0.6 mg/dL (1.6-2.3)
[2016-07-23 18:23] LABS: Add Differential Manual Differential
[2016-07-23] MEDS: NOREPINEPHRIN 16 MG-0.9%NS PMX 16 MG/250 ML ML IV SCH ×2 (18:23→22:40)
[2016-07-23 18:25] LABS: Manual Review Performed
[2016-07-23] MEDS: PROPOFOL 500 MG in EMPTY BAG 1 BAG IV SCH ×2 (18:27→21:40)
[2016-07-23] MEDS ORDERED: SODIUM CHLORIDE 0.9% 99 ML with VASOPRESSIN 20 UNIT IV SCH ×2 (18:30)
[2016-07-23] MEDS: MAGNESIUM SULFATE-D5W PMX 1 GM in DEXTROSE/WATER 1 100ML.BAG IVPB SCH ×4 (18:30→21:30)
--- NOTE | 2016-07-23 19:57 | P.CONS ---
History of Present Illness - Reason for Consult Consult date: 07/23/16 Febrile neutropenia with severe sepsis. Typhlitis - History of Present Illness The patient is a 55-year-old gentleman, well-known to our service. His followed by Dr. Ragsdale in the outpatient setting. He has a history of left -sided nonseminomatous testicular cancer, with involvement of left iliac lymph nodes. He is status postsurgical resection and is currently on chemotherapy with BEP. He received his last dose of chemotherapy on 07/20/16 with bleomycin. It appears that he has tolerated chemotherapy reasonably well so far. The patient came into the emergency room where he was feeling extremely weak. He was also complaining of somewhat diffuse abdominal pain and nausea. In the ER he was found to have temperature of 104+ , with WBC 0.4. He had chest x-ray, as well as abdominal x-ray, with possibility of ileus in the right lower quadrant. CT of the abdomen and pelvis was performed, which was consistent with the typhlitis. The patient subsequently progressed to severe sepsis with hypotension, marked tachycardia and increased respiratory rate. Case was discussed with the emergency room physician. Patient was started on broad-spectrum antibiotics, as well as pressors and IV fluids. He was also started on Neupogen, and and it was recommended that he be kept nothing by mouth. The patient subsequently developed severe respiratory distress and was intubated and sedated. Consult was placed for further evaluation and recommendations. Review of Systems The patient himself is sedated on the vent. Review of systems is obtained from the chart, ER notes, and my discussion with the ER physician Constitutional: Reports anorexia, Reports fever, Reports poor appetite, Reports weakness Eyes: denies blurred vision, denies pain Ears: deny: decreased hearing, ear discharge, earache, tinnitus Ears, nose, mouth and throat: Denies headache, Denies sore throat Cardiovascular: Reports shortness of breath Respiratory: Reports dyspnea Gastrointestinal: Reports abdominal pain, Reports nausea Genitourinary: Reports as per HPI (History of testicular cancer) Musculoskeletal: Reports muscle weakness Integumentary: Denies pruritus, Denies rash Neurological: Reports weakness Psychiatric: Denies anxiety, Denies depression Endocrine: Reports fatigue, Denies weight change Hematologic/Lymphatic: Reports as per HPI Past Medical History Past Medical History: Cancer, Diabetes Mellitus Additional Past Medical History / Comment(s): NEUROPATHY (FEET), DIABETIC SINCE AGE 39., HX OF SQUAMOUS CELL SKIN CANCER., TESTICULAR CANCER (DX FEBRUARY 2016), LEFT TESTICLE REMOVED 3 WEEKS AGO- STATES STILL SOME DRAINAGE FROM SURGICAL SITE. History of Any Multi-Drug Resistant Organisms: None Reported Past Surgical History: Cholecystectomy Additional Past Surgical History / Comment(s): DARRIAN DETACHED RETINA SURGERY., COLONOSCOPY, LEFT TESTICLE REMOVED (3 WEEKS AGO) Past Anesthesia/Blood Transfusion Reactions: No Reported Reaction Past Psychological History: No Psychological Hx Reported Smoking Status: Never smoker Past Alcohol Use History: None Reported Past Drug Use History: Unable to Obtain - Past Family History Sister(s) Family Medical History: Cancer Medications and Allergies Home Medications Medication Instructions Recorded Confirmed Type Insulin Detemir [Levemir Flextouch] 67 units SQ HS 04/30/16 07/23/16 History Insulin Lispro Protamin/Lispro See Protocol SQ AC-BID 04/30/16 07/23/16 History [humaLOG Mix 50-50 Kwikpen] Simvastatin [Zocor] 40 mg PO Q48H 04/30/16 07/23/16 History metFORMIN HCL [Glucophage] 1,000 mg PO AC-BID 04/30/16 07/23/16 History Calcium Carb-Vit D 500Mg-200Un 2 tab PO BID 07/16/16 07/23/16 History [Oscal 500+D] Hydrocortisone [Cortef] 20 mg PO DAILY 07/23/16 07/23/16 History Losartan Potassium [Cozaar] 100 mg PO DIRECTED 07/23/16 07/23/16 History Prochlorperazine [Compazine] 10 mg PO Q6H PRN 07/23/16 07/23/16 History Allergies Allergy/AdvReac Type Severity Reaction Status Date / Time Penicillins Allergy Unknown Rash/Hives Verified 07/23/16 11:21 Physical Exam Vitals: Vital Signs Temp Pulse Pulse Resp BP Pulse Ox 07/23/16 17:41 153 H 30 H 86/65 100 07/23/16 17:30 155 H 07/23/16 17:21 101.0 F H 158 H 30 H 106/62 100 07/23/16 16:47 161 H 30 H 94/52 98 07/23/16 16:30 100.9 F H 156 H 156 H 40 H 85/50 96 07/23/16 15:59 100.7 F H 160 H 39 H 80/46 98 07/23/16 15:50 158 H 42 H 79/42 90 L 07/23/16 15:25 155 H 28 H 68/42 86 L 07/23/16 15:00 100.5 F H 157 H 160 H 30 H 106/62 100 07/23/16 14:50 160 H 32 H 82/47 86 L 07/23/16 13:48 99.0 F 144 H 18 117/58 90 L 07/23/16 13:00 100.4 F H 148 H 140 H 30 H 139/74 96 07/23/16 11:02 104.3 F H 154 H 18 146/70 92 L Intake and Output 07/23/16 07/23/16 07/23/16 06:59 14:59 22:59 Intake Total 92.393 Output Total 900 Balance -807.607 Intake: Intake, IV Titration 92.393 Amount Insulin Regular 100 unit 35.518 In Sodium Chloride 0.9% 100 ml @ 6 UNIT/HR 6.06 mls/hr IV .[id number] ONE Rx #:[id number] Norepinephrin 4 mg-0.9% 56.875 Ns Pmx 4 mg In 250 ml @ Titrate IV .Q0M [facility] Rx#: [id number] Output: Urine 600 Oral Regurgitation 300 Other: Weight 104.326 kg 100 kg Patient Weight 07/24/16 06:59 Weight 100 kg - Constitutional Sedated, on vent General appearance: no acute distress - EENT ET tube in situ. No blood in the ET tube Eyes: PERRLA - Neck Neck: no lymphadenopathy Thyroid: bilateral: normal size - Respiratory Respiratory: bilateral: CTA - Cardiovascular Tachycardic Rhythm: regular Heart sounds: normal: S1, S2 - Gastrointestinal General gastrointestinal: absent bowel sounds, soft - Integumentary Integumentary: normal - Musculoskeletal Musculoskeletal: generalized weakness - Psychiatric Sedated, on ventilator Results CBC & Chem 7: 07/23/16 17:17 07/23/16 17:17 Labs: Abnormal Lab Results - Last 24 Hours (Table) 07/23/16 07/23/16 07/23/16 Range/Units 11:50 11:50 11:50 WBC 0.2 L* (3.8-10.6) k/uL RBC 3.01 L (4.30-5.90) m/uL Hgb 8.7 L (13.0-17.5) gm/dL Hct 25.7 L (39.0-53.0) % Plt Count 10 L* (150-450) k/uL PT (9.0-12.0) sec APTT (22.0-30.0) sec D-Dimer (<0.60) mg/L FEU ABG pH (7.35-7.45) ABG pCO2 (35-45) mmHg ABG pO2 (83-108) mmHg ABG HCO3 (21-25) mmol/L ABG Total CO2 (19-24) mmol/L ABG O2 Saturation (94-97) % Potassium (3.5-5.1) mmol/L Chloride 94 L (98-107) mmol/L Carbon Dioxide (22-30) mmol/L BUN 64 H (9-20) mg/dL Creatinine 2.30 H (0.66-1.25) mg/dL Glucose 446 H (74-99) mg/dL POC Glucose (mg/dL) (75-99) mg/dL Plasma Lactic Acid Mark (0.7-2.0) mmol/L Calcium 6.3 L* (8.4-10.2) mg/dL Phosphorus (2.5-4.5) mg/dL Magnesium (1.6-2.3) mg/dL Total Bilirubin 1.8 H (0.2-1.3) mg/dL Total Creatine Kinase 36 L (55-170) U/L Total Protein 5.9 L (6.3-8.2) g/dL Albumin 3.4 L (3.5-5.0) g/dL Urine Protein (Negative) Urine Glucose (UA) (Negative) 07/23/16 07/23/16 07/23/16 Range/Units 11:50 11:50 11:50 WBC (3.8-10.6) k/uL RBC (4.30-5.90) m/uL Hgb (13.0-17.5) gm/dL Hct (39.0-53.0) % Plt Count (150-450) k/uL PT 13.3 H (9.0-12.0) sec APTT 21.0 L (22.0-30.0) sec D-Dimer 4.48 H (<0.60) mg/L FEU ABG pH (7.35-7.45) ABG pCO2 (35-45) mmHg ABG pO2 (83-108) mmHg ABG HCO3 (21-25) mmol/L ABG Total CO2 (19-24) mmol/L ABG O2 Saturation (94-97) % Potassium (3.5-5.1) mmol/L Chloride (98-107) mmol/L Carbon Dioxide (22-30) mmol/L BUN (9-20) mg/dL Creatinine (0.66-1.25) mg/dL Glucose (74-99) mg/dL POC Glucose (mg/dL) (75-99) mg/dL Plasma Lactic Acid Mark 5.5 H* (0.7-2.0) mmol/L Calcium (8.4-10.2) mg/dL Phosphorus (2.5-4.5) mg/dL Magnesium (1.6-2.3) mg/dL Total Bilirubin (0.2-1.3) mg/dL Total Creatine Kinase (55-170) U/L Total Protein (6.3-8.2) g/dL Albumin (3.5-5.0) g/dL Urine Protein (Negative) Urine Glucose (UA) (Negative) 07/23/16 07/23/16 07/23/16 Range/Units 13:55 15:35 16:00 WBC (3.8-10.6) k/uL RBC (4.30-5.90) m/uL Hgb (13.0-17.5) gm/dL Hct (39.0-53.0) % Plt Count (150-450) k/uL PT (9.0-12.0) sec APTT (22.0-30.0) sec D-Dimer (<0.60) mg/L FEU ABG pH (7.35-7.45) ABG pCO2 22 L (35-45) mmHg ABG pO2 (83-108) mmHg ABG HCO3 12 L (21-25) mmol/L ABG Total CO2 13 L (19-24) mmol/L ABG O2 Saturation 98.0 H (94-97) % Potassium (3.5-5.1) mmol/L Chloride (98-107) mmol/L Carbon Dioxide (22-30) mmol/L BUN (9-20) mg/dL Creatinine (0.66-1.25) mg/dL Glucose (74-99) mg/dL POC Glucose (mg/dL) 506 H (75-99) mg/dL Plasma Lactic Acid Mark (0.7-2.0) mmol/L Calcium (8.4-10.2) mg/dL Phosphorus (2.5-4.5) mg/dL Magnesium (1.6-2.3) mg/dL Total Bilirubin (0.2-1.3) mg/dL Total Creatine Kinase (55-170) U/L Total Protein (6.3-8.2) g/dL Albumin (3.5-5.0) g/dL Urine Protein 1+ H (Negative) Urine Glucose (UA) 3+ H (Negative) 07/23/16 07/23/16 07/23/16 Range/Units 16:52 16:55 17:17 WBC (3.8-10.6) k/uL RBC (4.30-5.90) m/uL Hgb (13.0-17.5) gm/dL Hct (39.0-53.0) % Plt Count (150-450) k/uL PT (9.0-12.0) sec APTT (22.0-30.0) sec D-Dimer (<0.60) mg/L FEU ABG pH 7.30 L (7.35-7.45) ABG pCO2 27 L (35-45) mmHg ABG pO2 81 L (83-108) mmHg ABG HCO3 13 L (21-25) mmol/L ABG Total CO2 13 L (19-24) mmol/L ABG O2 Saturation (94-97) % Potassium (3.5-5.1) mmol/L Chloride (98-107) mmol/L Carbon Dioxide (22-30) mmol/L BUN (9-20) mg/dL Creatinine (0.66-1.25) mg/dL Glucose (74-99) mg/dL POC Glucose (mg/dL) 448 H (75-99) mg/dL Plasma Lactic Acid Mark 11.8 H* (0.7-2.0) mmol/L Calcium (8.4-10.2) mg/dL Phosphorus (2.5-4.5) mg/dL Magnesium (1.6-2.3) mg/dL Total Bilirubin (0.2-1.3) mg/dL Total Creatine Kinase (55-170) U/L Total Protein (6.3-8.2) g/dL Albumin (3.5-5.0) g/dL Urine Protein (Negative) Urine Glucose (UA) (Negative) 07/23/16 07/23/16 07/23/16 Range/Units 17:17 17:17 17:53 WBC 0.3 L* (3.8-10.6) k/uL RBC 2.94 L (4.30-5.90) m/uL Hgb 8.5 L (13.0-17.5) gm/dL Hct 25.9 L (39.0-53.0) % Plt Count 10 L* (150-450) k/uL PT (9.0-12.0) sec APTT (22.0-30.0) sec D-Dimer (<0.60) mg/L FEU ABG pH (7.35-7.45) ABG pCO2 (35-45) mmHg ABG pO2 (83-108) mmHg ABG HCO3 (21-25) mmol/L ABG Total CO2 (19-24) mmol/L ABG O2 Saturation (94-97) % Potassium 3.3 L (3.5-5.1) mmol/L Chloride (98-107) mmol/L Carbon Dioxide 14 L (22-30) mmol/L BUN 56 H (9-20) mg/dL Creatinine 3.00 H (0.66-1.25) mg/dL Glucose 427 H (74-99) mg/dL POC Glucose (mg/dL) 404 H (75-99) mg/dL Plasma Lactic Acid Mark (0.7-2.0) mmol/L Calcium 5.2 L* (8.4-10.2) mg/dL Phosphorus 4.9 H (2.5-4.5) mg/dL Magnesium 0.6 L* (1.6-2.3) mg/dL Total Bilirubin (0.2-1.3) mg/dL Total Creatine Kinase (55-170) U/L Total Protein (6.3-8.2) g/dL Albumin (3.5-5.0) g/dL Urine Protein (Negative) Urine Glucose (UA) (Negative) Microbiology - Last 24 Hours (Table) 07/23/16 13:55 Urine Culture - Preliminary Urine,Catheterized Chest x-ray: report reviewed Abdominal x-ray: report reviewed CT scan - abdomen: report reviewed CT scan - pelvis: report reviewed Assessment and Plan (1) Sepsis Narrative/Plan: The patient has developed severe sepsis, due to neutropenic typhlitis. He is currently intubated, and on pressors. He is on broad-spectrum antibiotics with vancomycin and ceftazidime. ID has been consulted. Defer to them for further antibiotic management. Continue aggressive supportive care, for the admitting service, and critical care medicine and ID. The patient is expected to improve significantly once WBC count recovers. Status: Acute (2) Neutropenic typhlitis Narrative/Plan: This is the cause of his severe sepsis syndrome. The patient has been started on Neupogen. THE PATIENT IS TO BE STRICTLY NOTHING BY MOUTH TILL THE ANC RECOVERS TO GREATER THAN 1000. Otherwise he would be at high risk for perforation. The same was placed as a complication order to nursing. Status: Acute (3) Pancytopenia due to antineoplastic chemotherapy Narrative/Plan: The patient has been started on filgrastim. Platelet count is 10,000. Nursing is aware that the patient should not have any anticoagulation, antiplatelet agents or NSAIDs. Given severe sepsis, I will transfuse a unit of platelets. If the patient develops evidence of overt bleeding, we will need to transfuse him to keep platelet count above 30-40,000. Continue to monitor counts with transfusion support as needed. I will also check fibrinogen level to rule out any element of DIC. Status: Acute Plan: Her prognosis is quite guarded at this time. However significant improvement with generally occur if the patient can be supported tail WBC recovery occurs.
[2016-07-23] MEDS: IPRATROPIUM-ALBUTEROL 3 ML NEB INHALATION SCH ×2 (19:58→23:10)
[2016-07-23 20:16] LABS: Glucose,Whole Blood 312 mg/dL (75-99)
--- NOTE | 2016-07-23 20:49 | CONS ---
DATE OF CONSULTATION: This is a 55-year-old gentleman with history of diabetes, hypertension, testicular cancer as well as hyperlipidemia. He presented apparently developed a fever and was seen in the emergency department by Dr. Diomedes Dawkins. The patient quickly deteriorated. The patient became hypotensive although initially he was not. He also developed respiratory distress and needed to be intubated. The patient is currently in room 20 in the ER. I am here in the ER myself just evaluating the patient. I have not looked at any of the data yet. Currently, the patient is on Levophed at a relatively high dose. He does have a port in place. I did talk to Dr. Braswell the primary. A number of doctors have seen the patient but nothing much has been done. Anyway, the patient's home medications include: 1. Insulin. 2. Zocor. 3. Glucophage. 4. Calcium. 5. Cortef. 6. As well as losartan. 7. Prochlorperazine. ALLERGIES PENICILLIN. Medical history includes diabetes with diabetic neuropathy and diabetic retinopathy. He also has a history of squamous cancer of the skin and testicular cancer diagnosed in February 2016. He had an orchiectomy 3 weeks ago. He has some drainage from the surgical site. He also has a history of previous cholecystectomy. He has had a colonoscopy and bilateral detached retina surgery. Social history is negative for tobacco. Alcohol none. Family history is positive for cancer. Review of systems cannot be obtained. Current vital signs include a respiratory rate about 40, heart rate of 130, blood pressure of only about 80 to 90 systolic, saturations are low 90s. Temperature was well over 100. Appears quite tachypneic and dyspneic. Cannot speak. He is on the ventilator. HEENT examination is grossly unremarkable. Mucous membranes are moist. NECK: Supple. Cardiovascular examination reveals tachycardia. Lungs reveal coarse rhonchi. ABDOMEN: Soft. Bowel sounds are heard. EXTREMITIES: Intact. No edema. Labs are reviewed. White count 0.2, hemoglobin 8.7, hematocrit 25.7, platelet count is only 10,000. PT 13.3, INR 1.4, PTT is 21 d-dimer 4.48, sodium and potassium normal. Chloride is 94, CO2 of 26. BUN and creatinine were 64 and 2.30. His sugar was 466, plasma lactic acid was 5.5, calcium 6.3, bilirubin 1.8, troponin 0.013. Urine is noted. Influenza studies are negative. A chest x-ray shows diffuse bilateral infiltrates, more in the lower lobes. Small lung volume. Subsequent chest x-ray shows basilar atelectasis. A CT of the abdomen and pelvis shows extensive year-old thickening involving the terminal ileum and cecum with surrounding inflammatory change. Differential diagnosis included inflammatory ileitis and colitis, ischemic causes are also possibilities. Current medications include: 1. Tylenol IV. 2. Tylenol orally. 3. Ceftazidime. 4. Filgrastim. 5. Hydrocortisone. 6. Dilaudid. 7. Levaquin. 8. Narcan. 9. Levophed. 10. Protonix. 11. Zofran. ASSESSMENT: 1. Overwhelming sepsis with developing multiorgan system failure. 2. Neutropenic sepsis/fever. 3. History of testicular cancer, status post recent chemotherapy. 4. Diabetes. 5. Hyperlipidemia. 6. Hypertension. 7. Diabetic neuropathy and retinopathy. 8. Recent orchiectomy. PLAN: The central line is placed. Art line will be placed. We will put the patient on propofol for sedation. We will get the patient moved up to the ICU. Prognosis is guarded. A.M. labs, x-rays and blood gases. Additional recommendations and suggestions are forthcoming. Prognosis is very guarded. Antibiotics are appropriate. Will keep him on hydrocortisone 100 q8h for his presumed adrenal insufficiency. Additional recommendations and suggestions are forthcoming.
[2016-07-23 20:50] LABS: Glucose,Whole Blood 274 mg/dL (75-99)
[2016-07-23] MEDS ORDERED: CHLORHEXIDINE GLUCONATE 15 ML CUP MUCOUS MEM SCH (21:00)
--- NOTE | 2016-07-23 21:10 | HP ---
DATE OF ADMISSION: 07/23/2016. CHIEF COMPLAINT: Fever. HISTORY OF PRESENT ILLNESS: This is a 55-year-old gentleman who was seen in the emergency room with complaint of fever and chills. 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 He has received five cycles. The patient presents with his fever. Yesterday, the patient had a fairly good day during the daytime. At night, he was having chills and not feeling well. The patient in view of this, was brought in to the ER in the morning. He had some nausea retching, but no vomiting. No true vomiting. He did complain of some abdominal pain and the patient also had diarrhea. The diarrhea has not been unusual for the past few weeks when off and on since he has been on chemotherapy. I was called by the patient from the ER. The patient's vital signs are stable except for tachycardia and a temperature of 104. The patient's abdomen was tender. A CAT scan had been done and ER physician was contacting the surgeon for an evaluation. The patient is also severely neutropenic. The patient knows and ER physician had talked to the oncologist. The patient is a diabetic. His blood sugar was elevated. I came in to see the patient meanwhile, the patient had become hypotensive and was intubated. The patient was also hypoxic. Patient seen in the ER is not able to communicate due to an endotracheal tube. The patient is however arousable. He has been given some Ativan. Arousable and he does move his eyes and recognizes both myself and his sisters. The patient has a history of diabetes mellitus for the past about 15 years now with some associated peripheral neuropathy and retinopathy. He has no history of any renal disease, lung disease, diabetes, kidney disease, ulcers, TB, hepatitis. No history of any rheumatic fever, myocardial infarctions or CVA. PAST SURGICAL HISTORY: Significant for cholecystectomy and ( ) for his eyes. PERSONAL HISTORY: The patient is never a smoker. No alcohol. He has been vaccinated for pneumonia. ALLERGIES TO PENICILLIN, WHICH CAUSES A RASH. MEDICATIONS INCLUDE: 1. Metformin 1000 mg b.i.d. 2. Compazine p.r.n. 3. Losartan 100 mg. 4. Insulin Humalog mix 50/50 b.i.d. 5. Levemir 6 to 7 units at bedtime. 6. He is also on calcium. 7. Simvastatin. 8. The patient's insulin Humalog it is not clear the dosage and timings. 9. The patient also on calcium carbonate. 10. Simvastatin 20 mg every 48 hours. SOCIAL HISTORY: The patient is . 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 Diet fair control, exercise none lately. FAMILY MEDICAL HISTORY: Father 88 history of diabetes mellitus type 2 with his cancer of the prostate. Mother history of hypertension and diabetes mellitus, type II. The patient has 4 sisters, a 60-year-old, 62-year-old, 64 years old and 66 years old. The 60-year-old has a history of hypothyroidism and diabetes mellitus. The patient's son, 23, at present is deployed and is in good health. REVIEW OF SYSTEMS: Not obtainable from the patient. Per the sisters no reported headaches and dizziness, had fever and chills starting yesterday night. Some retching. No vomiting. Did have some abdominal pain and diarrhea. : Unknown. EXTREMITIES: No pain or edema. CONSTITUTIONAL: No fever or chills. As mentioned above. SKIN: No rashes. PHYSICAL EXAMINATION: Patient was seen at the time was seen, was intubated, normocephalic, head with alopecia. Pupils are reactive. The patient is able to move his eyes are round. Scleral nonicteric. Conjunctivae pale. Patient has an ET tube and a gastric tube. Neck reveals no JVD. No supraclavicular lymphadenopathy. Chest examination is clear to auscultation with mild decreased air flow at the bases. No murmurs, gallops appreciated. Rhythm is irregular but tachycardic. ABDOMEN: Protuberant, tender to touch with guarding. Some rebound tenderness also. Bowel sounds are faint. Extremities reveal trace edema. NEUROLOGICALLY: Does move his hands and the legs. He has some tremoring. Plantars are equivocal. The patient does have known history of peripheral neuropathy. LABORATORY ASSESSMENT: CBC which revealed a hemoglobin of 8.7, white count of 0.2, platelet count of 10,000. D-dimer 4.48, INR 1.4. BUN 64, creatinine 2.3, potassium 3.5, CO2 content 26, plasma lactic acid 5.5, potassium 6.3, total bili 1.8. Normal hepatic function and CPK is 36, troponin 0.013. Albumin is 3.4. Urine has 1+ protein, 3+ glucose, ( ) blood positive. Blood sugar was 446, ( ) patient is on insulin drip. ASSESSMENT: 1. Septic shock. 2. Neutropenic fever. 3. Acute abdomen with colitis cannot rule out a microperforation. 4. Diabetes mellitus with elevated blood sugars. 5. Acute renal failure. 6. Carcinoma of the testicles/seminoma on chemotherapy. 7. Neutropenia. 8. Thrombocytopenia. 9. Anemia. 10. Acute respiratory failure. PLAN: Continue present medical regimen. Patient is being supported with ventilatory support with the ventilator. The patient's pH 7.36, however, pO2 is 106 with 100% FiO2 significant shunt. Patient has been seen by general surgeon and the seam steamer is seeing the patient. I had contact with the patient's family and discussed the case. Patient's prognosis remains guarded ( ). There are multiple major problems. However, the patient will be aggressively treated, treated with fluids initially and is on Levophed to help maintain blood pressure. Prognosis remains guarded. Condition discussed in detail with the patient's sister who is a nurse. We will continue to monitor patient closely.
[2016-07-23 22:13] LABS: Glucose,Whole Blood 255 mg/dL (75-99)
[2016-07-23 22:47] VITALS: BMI 32.5
[2016-07-23 23:15] LABS: Glucose,Whole Blood 222 mg/dL (75-99)
[2016-07-23 23:59] VITALS: BP 86/41; RESP 26; TEMP 101.2
[2016-07-24] MEDS ORDERED: HYDROCORTISONE SUCCINATE 100 MG/2 ML VIAL IV SCH
[2016-07-24 00:18] LABS: Glucose,Whole Blood 229 mg/dL (75-99)
[2016-07-24 01:25] LABS: Glucose,Whole Blood 184 mg/dL (75-99)
[2016-07-24 02:19] LABS: Glucose,Whole Blood 164 mg/dL (75-99)
[2016-07-24 02:22] VITALS: PULSE 143
--- NOTE | 2016-07-24 05:51 | ECHOF ---
Referral Reason:difficulty breathing MEASUREMENTS -------- HEIGHT: 152.4 cm WEIGHT: 108.4 kg BP: RVIDd: 3.4 cm (< 3.3) Ao Diam: 2.8 cm (2.0 - 3.7) LA Diam: 4.1 cm (2.7 - 3.8) FINDINGS -------- Resting tachycardia (HR>100bpm). Limited TDS Study to Eval EF. Left ventricular wall thickness is normal. Overall left ventricular systolic function is low-normal with, an EF between 50 - 55 %. The left atrium is mildly dilated. There is a small, generalized pericardial effusion present. CONCLUSIONS -------- 1. Resting tachycardia (HR>100bpm). 2. Limited TDS Study to Eval EF. 3. Overall left ventricular systolic function is low-normal with, an EF between 50 - 55 %. 4. The left atrium is mildly dilated. 5. There is a small, generalized pericardial effusion present. RUN BOAT OPERATOR: Stacey Hector RDCS
--- NOTE | 2016-07-24 07:49 | PCN ---
DATE OF PROCEDURE: TRIPLE LUMEN CATHETER PLACEMENT Indication: Hemodynamic monitoring/Intravenous access. PREOPERATIVE DIAGNOSIS: Administration of fluids and pressors. POSTOPERATIVE DIAGNOSIS: Administration of fluids and pressors. A time-out was completed verifying correct patient, procedure, site, positioning, and implant(s) or special equipment if applicable. The patient was placed in a dependent position appropriate for triple lumen catheter placement based on the vein to be cannulated. The patient's left neck was prepped and draped in sterile fashion. 1% Lidocaine was used to anesthetize the surrounding skin area. A triple lumen 9F Cordis catheter was introduced into the internal jugular vein using Seldinger technique. The catheter was threaded smoothly over the guide wire and appropriate blood return was obtained. Each lumen of the catheter was evacuated of air and flushed with sterile saline. The catheter was then sutured in place to the skin and a sterile dressing applied. Perfusion to the extremity distal to the point of catheter insertion was checked and found to be adequate. There was no immediate complication. Left internal jugular site was employed. Catheter was sutured in place. There was good blood return from all 3 ports. The sterile dressing was applied by the nurse. A chest x-ray was ordered.
--- NOTE | 2016-07-24 07:51 | PCN ---
DATE OF PROCEDURE: ARTERIAL LINE PLACEMENT Indication: Hemodynamic monitoring. PREPROCEDURE DIAGNOSIS: Frequent blood draws and blood gas monitoring. PREPROCEDURE DIAGNOSIS: Frequent blood draws and blood gas monitoring. A time-out was completed verifying correct patient, procedure, site, positioning, and implant(s) or special equipment if applicable. Jann's test was performed to ensure adequate perfusion. The patient's right groin was prepped and draped in sterile fashion. 1% Lidocaine was used to anesthetize the area. An 18G Arrow arterial line was introduced into the femoral artery. The catheter was threaded over the guide wire and the needle was removed with appropriate pulsatile blood return. Blood loss was minimal. The catheter was then sutured in place to the skin and a sterile dressing applied. Perfusion to the extremity distal to the point of catheter insertion was checked and found to be adequate. There was no immediate complication. Good blood return. There was good waveform. The patient tolerated the procedure well. The catheter was sutured in place. Sterile dressing was applied by the nurse. There was no immediate complication.
[2016-07-24] MEDS ORDERED: PANTOPRAZOLE 40 MG/10 ML VIAL IV SCH (09:00)
[2016-07-24] MEDS ORDERED: FILGRASTIM-SNDZ 480 MCG/0.8 ML SYRINGE SQ SCH (09:00)
--- NOTE | 2016-07-26 16:44 | P.DS ---
Providers Date of admission: 07/23/16 14:31 Attending physician: Lanre Braswell Consults: 07/23/16 14:31 Consult Physician Urgent Consulting Provider: Harley Paige Consult Reason/Comments: Critical care management Do you want consulting provider notified?: Yes Consult Physician Urgent Consulting Provider: Kenton Vargas Consult Reason/Comments: Sepsis Do you want consulting provider notified?: Yes Consult Physician Urgent Consulting Provider: Rupinder Boyce Consult Reason/Comments: abdominal pain, colitis Do you want consulting provider notified?: Yes 07/23/16 14:36 Consult Physician Urgent Consulting Provider: Kristian Ragsdale Consult Reason/Comments: Testicular cancer Do you want consulting provider notified?: Yes Primary care physician: Lanre Braswell Hospital Course: History present illness and Hospital course: This 55-year-old gentleman presented to the emergency room with high fever. Patient's symptoms started sometime during the night. Patient's noted to be markedly neutropenic. His been on chemotherapy for a seminoma of the testicle area patient while in the emergency room was awake alert initially , he was given significant amount of IV fluids and placed on Levaquin. He had marked tenderness of the abdomen and a CAT scan of the abdomen done revealed suggestion of an inflamed:. The patient does have some diarrhea. This is not unusual after the chemotherapy for him. The patient was alert with stable vital signs except for a high fever of 104 and a heart rate of 150 at the time of evaluation. Patient's temperature came down vital reveal the blood pressure was stable fairly suddenly crashed became hypotensive and started getting hypoxic. The patient was intubated given increased amount of IV fluids and Levophed. The patient was also placed on Fortaz and vancomycin. The patient remained fairly alert through this however the patient did continued hypoxia seen by e commerce merchandising coordinator Dr. Paige. Patient continue supportive treatment. Despite this patient's general condition deteriorated and he . Patient was also seen by oncology. Patient subsequent blood cultures come back showing Streptococcus pneumoniae. Final diagnosis 1. Septic shock 2. Streptococcal bacteremia 3. Abdominal pain 4. Colitis 5. Neutropenia 6. Thrombocytopenia 7. Bone marrow suppression due to chemotherapy 8. Testicular seminoma on treatment 9. 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 Acute renal failure 11. Acute hypoxic respiratory failure 12. Hyperglycemia Plan - Discharge Summary New Discharge Prescriptions: No Action metFORMIN HCL [Glucophage] 1,000 mg PO AC-BID Simvastatin [Zocor] 40 mg PO Q48H Insulin Lispro Protamin/Lispro [humaLOG Mix 50-50 Kwikpen] See Protocol SQ AC -BID Insulin Detemir [Levemir Flextouch] 67 units SQ HS Calcium Carb-Vit D 500Mg-200Un [Oscal 500+D] 2 tab PO BID Hydrocortisone [Cortef] 20 mg PO DAILY Prochlorperazine [Compazine] 10 mg PO Q6H PRN PRN Reason: Nausea Losartan Potassium [Cozaar] 100 mg PO DIRECTED Discharge Medication List Insulin Detemir [Levemir Flextouch] 67 units SQ HS 04/30/16 [History] Insulin Lispro Protamin/Lispro [humaLOG Mix 50-50 Kwikpen] See Protocol SQ AC- BID 04/30/16 [History] Simvastatin [Zocor] 40 mg PO Q48H 04/30/16 [History] metFORMIN HCL [Glucophage] 1,000 mg PO AC-BID 04/30/16 [History] Calcium Carb-Vit D 500Mg-200Un [Oscal 500+D] 2 tab PO BID 07/16/16 [History] Hydrocortisone [Cortef] 20 mg PO DAILY 07/23/16 [History] Losartan Potassium [Cozaar] 100 mg PO DIRECTED 07/23/16 [History] Prochlorperazine [Compazine] 10 mg PO Q6H PRN 07/23/16 [History] Follow up Appointment(s)/Referral(s): Lanre Braswell MD [Primary Care Provider] - 1-2 days Discharge Disposition: - Preliminary Cause of Preliminary Cause of : septic shock and streptococcal pneumoniae bacteremia ,neutropenia
== END 2016-07-24 03:10 | disposition expired | DRG 871 ==
LOC: EC 11:00 → 6ICU 14:31
PROVIDERS: ADMIT Internal Medicine; ATTEND Internal Medicine
PROC: 0BH17EZ Insertion of Endotracheal Airway into Trachea, Via Natural or Artificial Opening (ICD-10-PCS; principal; 2016-07-23)
PROC: 04HY32Z Insertion of Monitoring Device into Lower Artery, Percutaneous Approach (ICD-10-PCS; 2016-07-23)
PROC: 5A1935Z Respiratory Ventilation, Less than 24 Consecutive Hours (ICD-10-PCS; 2016-07-23)
PROC: 02HV33Z Insertion of Infusion Device into Superior Vena Cava, Percutaneous Approach (ICD-10-PCS; 2016-07-23)
DX: A40.3 Sepsis due to Streptococcus pneumoniae (principal); J96.01 Acute respiratory failure with hypoxia; R65.21 Severe sepsis with septic shock; D61.810 Antineoplastic chemotherapy induced pancytopenia; N17.9 Acute kidney failure, unspecified; C77.9 Secondary and unspecified malignant neoplasm of lymph node, unspecified; B95.3 Streptococcus pneumoniae as the cause of diseases classified elsewhere; E11.65 Type 2 diabetes mellitus with hyperglycemia; D75.89 Other specified diseases of blood and blood-forming organs; R50.81 Fever presenting with conditions classified elsewhere; E83.51 Hypocalcemia; D69.59 Other secondary thrombocytopenia; K52.9 Noninfective gastroenteritis and colitis, unspecified; E11.319 Type 2 diabetes mellitus with unspecified diabetic retinopathy without macular edema; E11.42 Type 2 diabetes mellitus with diabetic polyneuropathy; T45.1X5A Adverse effect of antineoplastic and immunosuppressive drugs, initial encounter; I10 Essential (primary) hypertension; C62.92 Malignant neoplasm of left testis, unspecified whether descended or undescended; D70.3 Neutropenia due to infection; R00.0 Tachycardia, unspecified; L65.9 Nonscarring hair loss, unspecified; E03.9 Hypothyroidism, unspecified; E78.5 Hyperlipidemia, unspecified; Z88.0 Allergy status to penicillin; Z90.49 Acquired absence of other specified parts of digestive tract; Z79.899 Other long term (current) drug therapy; Z79.4 Long term (current) use of insulin; Z85.828 Personal history of other malignant neoplasm of skin; Z90.79 Acquired absence of other genital organ(s); Z80.42 Family history of malignant neoplasm of prostate; Z83.3 Family history of diabetes mellitus; Z82.49 Family history of ischemic heart disease and other diseases of the circulatory system
CPT/HCPCS: 31500; 36415; 43753; 71010; 71020; 74000; 74176; 80048; 80053; 81001; 82271; 82330; 82550; 82553; 82805; 83605; 83735; 84100; 84484; 85025; 85379; 85384; 85610; 85730; 86850; 86900; 86901; 87040; 87077; 87086; 87186; 87502; 93005; 93308; 94002; 94003; 94640; 96361; 96365; 96366; 96367; 96368; 96372; 96375; 99152; 99291